=== PATIENT | female | born 1970 | race Caucasian/White ===

== ENCOUNTER 2017-03-03 18:40 | Emergency (ER) | payer MEDICAID ==
[~2017-03-03] VITALS: Ht 167.6 cm; Wt 130.4 kg
[~2017-03-03 18:40] MED LIST: LORA2TAB2 PO; SERT50TA12 PO
[2017-03-03] MEDS ORDERED: NAPR-58 PO (18:46)
[2017-03-03] MEDS ORDERED: IBUP-1547 PO (18:46)
[2017-03-03 19:45] VITALS: BP 143/83
[2017-03-03] MEDS ORDERED: CYCLOBENZAPRINE HCL 10 MG TABLET PO ONE (19:45)
[2017-03-03] MEDS ORDERED: HYDROCODONE/ACETAMINOPHEN 5-325 MG TABLET PO ONE (19:45)
== END 2017-03-03 19:52 | disposition home or self-care (01) ==
LOC: EMS 18:42
DX: M54.5 Low back pain (principal); M79.1 Myalgia; F32.9 Major depressive disorder, single episode, unspecified; F41.9 Anxiety disorder, unspecified; E66.01 Morbid (severe) obesity due to excess calories; Z90.89 Acquired absence of other organs; Z98.890 Other specified postprocedural states
CPT/HCPCS: 99283

== ENCOUNTER 2020-02-24 21:33 | Emergency (ER) | payer MEDICAID ==
[~2020-02-24] VITALS: Ht 165.1 cm; Wt 134.6 kg
[~2020-02-24 21:33] MED LIST changes: +IBUP-2071 PO; +NAPR-1025 PO
[2020-02-24] MEDS ORDERED: TRAZ-257 PO (21:36)
[2020-02-25] MEDS ORDERED: LIDOCAINE 1% 10 ML VIAL INJ ONE
[2020-02-25] MEDS ORDERED: IBUPROFEN 400 MG TABLET PO ONE
[2020-02-25] MEDS ORDERED: ACETAMINOPHEN 325 MG TABLET PO ONE
[2020-02-25] MEDS ORDERED: FentaNYL CITRATE-PF 100 MCG/2 ML VIAL IVP ONE
[2020-02-25 01:35] VITALS: BP 160/88
== END 2020-02-25 02:37 | disposition home or self-care (01) ==
LOC: EMS 21:35
DX: S53.125A Posterior dislocation of left ulnohumeral joint, initial encounter (principal); F31.9 Bipolar disorder, unspecified; F41.9 Anxiety disorder, unspecified; Z79.899 Other long term (current) drug therapy; V19.9XXA Pedal cyclist (driver) (passenger) injured in unspecified traffic accident, initial encounter; Y93.89 Activity, other specified; Y92.488 Other paved roadways as the place of occurrence of the external cause; Y99.8 Other external cause status
CPT/HCPCS: 24600; 29105; 73060; 73070 ×2; 96374; 99284; J3010; J3490